=== PATIENT | male | born 1980 | race Caucasian/White ===

== ENCOUNTER → 2020-07-21 13:32 | Outpatient (BNVA) | payer SELFPAY | PROVIDERS: Visit Provider Nurse Practitioner Family | DX: Z20.2 Contact with and (suspected) exposure to infections with a predominantly sexual mode of transmission (principal) | CPT/HCPCS: 87491; 87591 ==

== ENCOUNTER 2020-07-23 10:20 | Emergency (ER) | payer SELFPAY ==
[2020-07-23 10:33] VITALS: BP 159/102; PULSE 116; RESP 16; TEMP 36.3; O2SAT 96; BMI 27.1
--- NOTE | 2020-07-23 10:40 | W.ED.MALEGU ---
HPI - Male Genitourinary General: Chief complaint: Urogenital-Male Stated complaint: wants checked for STD Time Seen by Provider: 07/23/20 10:37 Source: patient Mode of arrival: ambulatory Limitations: no limitations History of Present Illness: HPI Narrative: 40-year-old male patient comes in today for concerns of urethritis. Patient reports pain with urination and significant amounts of drainage from the urethra of the penis. Patient appears well. Patient appears in no acute distress. Patient appears in mild pain. Review of Systems General: Reports: 10 or more systems reviewed and unremarkable except in HPI and below : Reports: penile discharge [facility] ED PFSH: Social History (Updated 07/21/20 @ 13:22 by Ashley Eckert LPN) Smoking and tobacco status: never smoked Physical Exam Const: COMMON NORMALS: no acute distress and patient oriented x3 GENERAL APPEARANCE: cooperative HENMT: COMMON NORMALS: normocephalic, TM's normal bilaterally and Normal external nose present HEAD & SCALP: normal to inspection and normocephalic NOSE: Normal external nose present TYMPANIC MEMBRANE: TM's normal bilaterally MOUTH: Normal oral and palatal mucosa present THROAT: posterior oropharynx normal Eye: GENERAL EYE: appearance normal, both eyes and all related structures Neck/C-Spine: COMMON NORMALS: full ROM Lymph: LYMPHATIC: no lymphadenopathy noted Chest: COMMONS NORMALS: normal inspection of the chest Resp: COMMON NORMALS: normal respiratory effort EFFORT & INSPECTION: Yes able to speak in complete sentences Cardio: COMMON NORMALS: regular rate and regular rhythm RATE: regular rate RHYTHM: regular rhythm GI: COMMON NORMALS: non-tender : COMMON NORMALS: Yes no CVA tenderness BLADDER/KIDNEY EXAM: Yes no CVA tenderness PENIS: uncircumcised MEATUS: meatal discharge (Large amount of purulent watery drainage.) Back/Pelvis: COMMON NORMALS: no CVA tenderness and thoracic and lumbar spine normal to inspection Extremity: COMMON NORMALS: normal to inspection Neuro: COMMON NORMALS: patient oriented x3 and moves all extremities Psych: COMMON NORMALS: mental status grossly normal and cooperative Skin: COMMON NORMALS: no rashes or lesions noted GENERAL SKIN EXAM: no rashes or lesions noted Course Vital Signs: Vital signs: Vital Signs Temperature 97.3 F L 07/23/20 10:33 Pulse Rate 116 H 07/23/20 10:33 Respiratory Rate 16 07/23/20 10:33 Blood Pressure 159/102 07/23/20 10:33 Pulse Oximetry 96 07/23/20 10:33 MDM - Male MDM Narrative: Medical decision making narrative: 40-year-old male patient comes in with drainage from tip of the penis. On exam we note copious amounts of purulent watery discharge from the penis. Remainder of exam was normal. Vital signs normal. Differential diagnosis includes urethritis, chlamydia versus gonorrhea infection. Patient will be treated with ceftriaxone 500 once and doxycycline 100 mg twice a day for the next 7 days per recommendations of the CDC guidelines. Reviewed the importance of follow-up with primary care in 1 week for recheck of eradication of illness. Also recommended patient informing partner due to infection and need for them to be treated. Discharge Plan Discharge Patient Disposition: Home Clinical Impression: Urethritis Condition: Stable Prescriptions: New doxycycline hyclate 100 mg capsule 100 mg PO BID 7 Days Qty: 14 RF: 0 Discharge Orders: Discharge ED (Routine); Ordered 07/23/20 Ordered By: Manuelito Tyler Discharge Diet: Usual diet Discharge Activity: Increase activity as tolerated Patient Instructions: Nonspecific Urethritis in Men (ED), Opioid Safety Activity Restrictions/Additional Instructions: Use a condom for protection against STI. Your partner should be treated also. Drink plenty of water with medication. Follow-up with primary care in 1 week for recheck to ensure eradication of illness. Return to the emergency department for new concerns. Coding Level of Care Code ED House Painting Instructor for Sandrine Fwfrancisco Exam Comprehensive
[2020-07-23] MEDS: doxycycline 100 mg Tablet PO (11:19)
[2020-07-23 11:33] VITALS: BP 125/97; PULSE 111; RESP 18; O2SAT 95
== END 2020-07-23 11:33 | disposition home or self-care (01) ==
PROVIDERS: Emergency Provider Nurse Practitioner Family
DX: N34.2 Other urethritis (principal)
CPT/HCPCS: 96372; 99283; J0696

== ENCOUNTER 2024-11-02 11:42 | Emergency (ER) | payer MEDICAID, SELFPAY ==
[2024-11-02 11:45] VITALS: BP 113/86; PULSE 111; RESP 16; TEMP 36.7; O2SAT 100; BMI 23.1
--- NOTE | 2024-11-02 11:57 | USR_ITS ---
PROCEDURE INFORMATION: Exam: US Scrotum Exam date and time: 11/02/2024 12:28 PM Age: 44 years old Clinical indication: Scrotum pain. Testicular pain TECHNIQUE: Imaging protocol: Real-time ultrasound of the scrotum and contents with color Doppler and image documentation. COMPARISON: US abdomen complete* [id number] 11/17/2018 7:19 AM FINDINGS: The right testis measures 3.8 x 2.0 x 2.4 cm. The right testicle is homogeneous without evidence of focal mass. The left testis measures 3.9 x 2.6 x 3.0 cm. The left testicle is markedly hyperemic. There is a moderate complex left hydrocele with septations. The right epididymis measures 0.8 x 1.0 x 0.8 cm. The right epididymis is unremarkable without focal lesion. The left epididymis measures 1.2 x 1.1 x 1.8 cm. The left epididymis is heterogeneous and hyperemic. Epididymal cysts are seen that measure up to 0.2 cm. The left epididymis is unremarkable without focal lesion. Doppler interrogation of the testicles reveals arterial blood flow. US/US scrotum [id number] IMPRESSION: 1. Findings compatible with left epididymo-orchitis with moderate complex, septated hydrocele. 2. No evidence of testicular torsion.
--- NOTE | 2024-11-02 13:09 | W.ED.MALEGU ---
HPI - Male Genitourinary General: Chief complaint: Urogenital-Male Stated complaint: testicle pain Time Seen by Provider: 11/02/24 12:52 Source: patient Mode of arrival: ambulatory Limitations: no limitations History of Present Illness: 44-year-old male states been having left testicle pain for last 2 days states the sharp pain he rates today an 8 out of 10. States is most worse with palpation he denies any dysuria denies any penile discharge denies abdominal pain Associated symptoms: Deny dysuria, nausea or vomiting Related Data Previous Rx's ?Medication ?Instructions ?Recorded doxycycline hyclate 100 mg capsule 100 mg PO BID #20 caps 10/30/20 prednisone 20 mg tablet 60 mg (3 x 20 mg) PO DAILY 5 days 10/30/20 #15 tabs doxycycline hyclate 100 mg tablet 100 mg PO BID 14 days #28 tabs 11/02/24 hydrocodone 5 mg-acetaminophen 325 1 tab PO Q6H PRN pain #14 tabs 11/02/24 mg tablet Allergies Allergy/AdvReac Type Severity Reaction Status Date / Time No Known Allergies Allergy Verified 10/30/20 09:20 Review of Systems Const: Denies: fever(s), chills, body aches or change in appetite ENMT: Denies: throat pain or dental pain Card: Denies: chest pain Resp: Denies: dyspnea GI: Denies: abdominal pain, nausea, vomiting or diarrhea : Reports: testicular pain; Denies: dysuria Musc: Denies: neck pain or back pain Skin/Breast: Denies: rash Neuro: Denies: headache(s) PFSH ED PFSH: Medical History (Updated 11/02/24 @ 13:06 by Lisseth Cesar MD) Chronic urticaria Chronic symmetrical impetigo Social History Smoking and tobacco/nicotine status: current every day tobacco/nicotine user cigarettes Packs smoked per day: 1 Alcohol intake: current Alcohol intake frequency: few times a month Substance/Drug Use: never Marital status: Single Number of children: 3 Current occupational status: employed Physical Exam Const: COMMON NORMALS: no acute distress, patient oriented x3 and healthy appearing HENMT: COMMON NORMALS: normocephalic and atraumatic HEAD & SCALP: normocephalic and atraumatic Neck/C-Spine: COMMON NORMALS: full ROM and supple Chest: COMMONS NORMALS: normal inspection of the chest Resp: COMMON NORMALS: normal respiratory effort Cardio: COMMON NORMALS: regular rate, regular rhythm and No murmurs present (Cardio) RATE: regular rate RHYTHM: regular rhythm GI: COMMON NORMALS: Normal to inspection, nondistended, normoactive bowel sounds present, Soft to palpation, non-tender and no masses PALPATION: Yes Soft to palpation : OTHER: Tenderness noted to left testicle some swelling no signs of torsion Extremity: COMMON NORMALS: normal to inspection and full ROM Neuro: COMMON NORMALS: patient oriented x3, moves all extremities and no focal motor deficits Psych: COMMON NORMALS: mental status grossly normal, Normal thought process present and cooperative THOUGHT PROCESS: Normal thought process present Skin: COMMON NORMALS: no rashes or lesions noted and no wounds GENERAL SKIN EXAM: no rashes or lesions noted Course Vital Signs: Vital signs: Vital Signs Temperature 98.0 F 11/02/24 11:45 Pulse Rate 111 H 11/02/24 11:45 Respiratory Rate 16 11/02/24 11:45 Blood Pressure 113/86 11/02/24 11:45 Pulse Oximetry 100 11/02/24 11:45 Oxygen Delivery Me thod Room Air 11/02/24 11:45 MDM - Male Medical Decision Making Patient presents here with testicle pain ultrasound shows a epididymitis and orchitis did give him Rocephin here we will start him on doxycycline he is follow-up urology return if worsening. Medical Records I reviewed the patient's medical records. All radiology interpretation(s) finalized by discharge Discharge Plan Discharge Patient Disposition: Home Clinical Impression: Epididymitis Condition: Stable Prescriptions: New hydrocodone-acetaminophen 5-325 mg tablet 1 tab PO Q6H PRN (Reason: pain) Qty: 14 0RF doxycycline hyclate 100 mg tablet 100 mg PO BID 14 Days Qty: 28 0RF No Action doxycycline hyclate 100 mg capsule 100 mg PO BID Qty: 20 0RF prednisone 20 mg tablet 60 mg PO DAILY 5 Days Qty: 15 0RF Discharge Orders: Discharge ED (Routine); Ordered 11/02/24 Ordered By: Lisseth Cesar Discharge Diet: Advance as tolerated Discharge Activity: Resume usual activity Patient Instructions: Epididymitis (ED), Opioid Safety Print Language: Macedonian Coding Level of Care Code ED Manager Of Marketing for Sandrine Saxena
[2024-11-02] MEDS: HYDROcodone-acetaminophen 5-325 mg Tablet 1 TAB PO (13:43)
[2024-11-02] MEDS: cefTRIAXone 250 MG in water for injection-sterile 0.9 ML 999 MG IM (13:44)
[2024-11-02 13:59] VITALS: BP 117/81; PULSE 99; O2SAT 100
== END 2024-11-02 14:00 | disposition home or self-care (01) ==
PROVIDERS: Emergency Provider Emergency Medicine
DX: N45.1 Epididymitis (principal); F17.210 Nicotine dependence, cigarettes, uncomplicated
CPT/HCPCS: 76870; 96372; 99284; J0696; J9999